=== PATIENT | male | born 1995 | race Caucasian/White ===

== ENCOUNTER 2020-01-28 17:30 | Inpatient (IN) | payer OTHER ==
[2020-01-28] MEDS ORDERED: Fentanyl 100 MCG/2 ML VIAL ONE (17:38)
--- NOTE | 2020-01-28 18:01 | RAD ---
Radiograph left humerus 2 views: HISTORY: 25-year-old male status post traumatic injury to arm FINDINGS: The distal humerus is excluded from the [id number] on one of the views, and is poorly positioned o n the other [id number]. There is no fracture of the humeral diaphysis and humeral head. IMPRESSION: No fracture of humeral head or shaft.
--- NOTE | 2020-01-28 18:04 | RAD ---
Radiograph left forearm 2 views: 01/28/2020 5:44 PM HISTORY: 25-year-old male with traumatic acute forearm pain due to fall from horse FINDINGS: Comminuted fracture of proximal metaphysis of ulna, with mild displacement, and medial angulation of fracture apex. There is also fracture of the humeral head, where the medial portion of the humeral head is significantly displaced distally. There is associated widening of the capitello- radial joint space. IMPRESSION: Acute, traumatic, displaced fractures of left radial head and left proximal ulna.
--- NOTE | 2020-01-28 18:05 | RAD ---
RADIOGRAPH CHEST 1 VIEW: DATE: 01/28/2020 HISTORY: 25-year-old male status post acute chest trauma due to fall from horse FINDINGS: There are no airspace densities, pulmonary edema, pneumothorax, or cardiomegaly. The lateral costophr enic angles are sharp. IMPRESSION: No acute cardiopulmonary findings.
[2020-01-28 18:07] LABS: #Eosinphils 0.1 thou/uL (0.0-0.7); #Lymphocytes 1.9 thou/uL (1.20-3.40); #Monocytes 0.8 thou/uL (0.11-0.59); #Neutrophils 12.8 thou/uL (1.40-6.50); %Basophils 0.2 % (0.0-1.0); %Eosinophils 0.4 % (0.0-10.0); %Lymphocytes 12.3 % (21.0-51.0); %Monocytes 4.8 % (0.0-10.0); %Neutrophils 82.3 % (42.0-75.0); Hemoglobin 14.7 g/dL (14.0-18.0); Mean Corpuscular HGB CONC 33.2 g/dL (32.0-36.0); Mean Corpuscular Hemoglobin 28.6 pg (27.0-31.0); Mean Corpuscular Volume 86.3 fL (78.0-98.0); Mean Platelet Volume 7.5 fL (7.4-10.4); Platelet Count 346 thou/uL (130-400); RBC Distribution Width 14.4 % (11.5-14.5); Red Blood Cell (RBC) Count 5.15 mill/uL (4.70-6.10); White Blood Cell (WBC) Count 15.5 thou/uL (4.8-10.8)
--- NOTE | 2020-01-28 18:10 | CT ---
CT BRAIN NONCONTRAST: DATE: 01/28/2020 HISTORY: 25-year-old male status post acute head trauma from fall from horse FINDINGS: There is no evidence of acute intra-axial or extra-axial hemorrhage. There is no midline shift or any other mass effect. There is no extra-axial fluid collection. The ventricles are normal in size and configuration. The tympanomastoid cavities, and the upper portions of the paranasal sinuses included in these images, are grossly clear. Calvarium is intact. IMPRESSION: Normal.
--- NOTE | 2020-01-28 18:13 | RAD ---
Radiograph left elbow 2 views: 01/28/2020 5:43 PM HISTORY: 25-year-old male with acute traumatic elbow pain due to fall from horse. FINDINGS: Comminuted fracture of proximal ulnar metaphysis, with slight dorsal angulation of fracture apex and mild displacement. Fracture involving anteromedial half of the radial head, with significant distal displacement. Wideni ng of capitellum radial joint space. IMPRESSION: 1.) Acute, traumatic, significantly displaced, intra-articular fracture of radial head. 2) comminuted, mildly displaced and mildly angled fracture proximal ulnar metaphysis.
--- NOTE | 2020-01-28 18:15 | CT ---
CT CERVICAL SPINE NONCONTRAST: DATE: 01/28/2020 HISTORY: cervical trauma: 25-year-old male status post fall FINDINGS: Alignment is normal. Vertebral body heights are maintained. No prevertebral soft tissue swelling. No perched or jumped facets. No significant degenerative disc disease or significant degenerative facet disease identified. No fracture or any other major osseous abnormality. IMPRESSION: Normal
--- NOTE | 2020-01-28 18:19 | CT ---
CT maxillofacial noncontrast: HISTORY: 25-year-old male status post fall from horse acute facial trauma Dr. Zamora verbally gave reports of the CTs of the face, brain, and C-spine, I telephone to Dr. lucho Ramirez ims of the ER at 6:16 PM 01/28/2020 FINDINGS: There is no fracture. Orbits, paranasal sinuses, and bilateral tympanomastoid cavities, are clear. No hematoma. No dislocation of TMJs. IMPRESSION: Negative
[2020-01-28 18:27] LABS: ALT (SGPT) 14 U/L (8-55); AST (SGOT) 14 U/L (5-34); Albumin 3.8 g/dL (3.5-5.0); Alkaline Phosphatase 70 U/L (40-110); Anion Gap 13 mmol/L (10-20); BUN (Urea Nitrogen) 9 mg/dL (8.9-20.6); Bilirubin, Total 0.9 mg/dL (0.2-1.2); Calc. Creatinine Clearance 0 mL/min (70-130); Calcium 7.8 mg/dL (7.8-10.44); Carbon Dioxide 22 mmol/L (22-29); Chloride 106 mmol/L (98-107); Estimated GFR-MDRD Greater than 90; Globulin 2.8 g/dL (2.4-3.5); Glucose 113 mg/dL (70-105); Protein, Total 6.6 g/dL (6.0-8.3); Sodium 138 mmol/L (136-145)
[2020-01-28 18:34] LABS: Potassium 2.8 mmol/L (3.5-5.1)
[2020-01-28] MEDS ORDERED: Ondansetron PF 4 MG/2 ML Vial ONE ×2 (18:39→21:56)
[2020-01-28] MEDS ORDERED: Morphine 4 MG/ML VIAL ONE ×3 (18:39→20:28)
[2020-01-28 19:35] LABS: Magnesium 1.2 mg/dL (1.6-2.6)
[2020-01-28 19:39] LABS: Phosphorus 1.1 mg/dL (2.3-4.7)
[2020-01-28 19:52] LABS: INR-International Normal Ratio 1.1
[2020-01-28 19:55] LABS: Lactic Acid 0.9 mmol/L (0.5-2.2)
[2020-01-28] MEDS ORDERED: Dextrose 5% in Water 1,000 ML IV PRN (21:12)
[2020-01-28] MEDS ORDERED: Dextrose 50% Abboject 50 ML SYRINGE SLOW IVP PRN (21:12)
[2020-01-28] MEDS ORDERED: traMADol HCl 50 MG TAB PO PRN (21:15)
[2020-01-28] MEDS ORDERED: Magnesium 2 GM/50 ML BAG (IN WATER) ONE (21:43)
[2020-01-28] MEDS ORDERED: Magnesium 2 GM/50 ML 2 GM in Premix Bag 1 BAG IVPB SCH (22:00)
[2020-01-28] MEDS ORDERED: Potassium Phosphate 30 MMOL in Sodium Chloride 0.9% 250 ML 250 ML IVPB SCH (22:00)
[2020-01-29] MEDS: Morphine 4 MG/ML VIAL SLOW IVP PRN ×3 (00:05→07:52)
[2020-01-29] MEDS: Ibuprofen 600 MG TAB PO SCH ×4 (00:05→19:35)
[2020-01-29] MEDS: Acetaminophen 500 MG TAB PO SCH ×4 (00:05→17:32)
[2020-01-29] MEDS: Cyclobenzaprine 10 MG TAB PO PRN ×2 (00:08→19:35)
[2020-01-29] MEDS: traMADol HCl 50 MG TAB PO PRN ×3 (00:08→17:32)
[2020-01-29] MEDS: Lactated Ringer's 1,000 ML IV SCH ×3 (00:10→14:09)
[2020-01-29 01:37] VITALS: BMI 25.7
--- NOTE | 2020-01-29 02:16 | HP ---
TRAUMA SURGEON: Dr. Jay. CONSULTING PHYSICIAN: Dr. Tariq. HISTORY OF PRESENT ILLNESS: The patient is a 25-year-old male presented to the emergency department via EMS as a level 2 trauma activation when he was ejected from the horse. The patient reports that when he got onto the horse, he started to izquierdo and he fell onto his left side. He reports striking his head, but no loss of consciousness. He does not use any anticoagulation. He has an obvious left distal radius and ulnar fracture, which has been splinted. His GCS is 15. He has been hemodynamically stable. The patient was ambulatory on the scene. REVIEW OF SYSTEMS: All additional 10-point review of systems negative except as indicated above. PAST MEDICAL HISTORY: The patient had a pituitary adenoma resection in May 2019. He has no residual deficits. PAST SURGICAL HISTORY: Pituitary adenoma resection in May and left ankle fracture ORIF. SOCIAL HISTORY: The patient works in the [employer] field. He chews tobacco. Denies any drug use. He drinks alcohol about 2-3 times a week. No history of any dependency. MEDICATIONS: The patient takes cabergoline 0.5 mg on Tuesdays and . ALLERGIES: SUDAFED. PHYSICAL EXAMINATION: VITAL SIGNS: Temperature 98.4, pulse 80, respirations 18, oxygen saturation 100% on room air, blood pressure 138/62. PRIMARY SURVEY: Airway intact. Adequate breath sounds bilaterally. 2+ pulses in bilateral radials, femorals, and DPs. GCS 15. Gross motor and sensation intact. No lacerations, bruising, or external bleeding. HEAD: Normocephalic. No gross palpable skull deformities or tenderness. EYES: Pupils 3 to 2, equal, round, reactive bilaterally. ENT AND NECK: No hemotympanum. No epistaxis. No septal hematoma. Midface stable to manipulation. No blood in the oropharynx. Dentition is intact. No anterior neck injury/crepitus/tenderness. The patient does have some very mild bruising near the left periorbital area of his face. C-spine, no step-offs or deformities. C-collar not in place. CHEST: Nontender. No crepitus. No abrasions or ecchymosis noted. Equal chest movement. ABDOMEN: Soft, nontender, nondistended. PELVIS: Stable to palpation, nontender. No abrasions or ecchymosis noted. RECTAL: Deferred. GENITOURINARY: Deferred. EXTREMITIES: Splint to left upper extremity is in place and fitting appropriately. There are no other deformities in his bilateral lower and right upper extremity. 2+ pulses in bilateral radials, femorals, and DPs. BACK/SPINE: No step-offs or deformities or tenderness to palpation of the thoracic or lumbar spine. No abrasions or ecchymosis noted. NEUROLOGIC: 5/5 strength in bilateral code official, plantar flexion dorsiflexion, gross normal sensation x4 extremities. LABORATORY FINDINGS: White count 15.5, hemoglobin 14.7, hematocrit 44.5, platelets 346. INR 1.1. Sodium 138, potassium 2.8, chloride 106, bicarb 22, BUN 9, creatinine 0.70, glucose 113, lactic acid 0.9, phosphorus 1.1, magnesium 1.2, total bilirubin 0.9, AST 14, ALT 14, alkaline phosphatase 70. DIAGNOSTIC FINDINGS: X-ray of the left elbow demonstrates acute traumatic significantly displaced intra-articular fracture of the radial head, comminuted, mildly displaced and mildly angulated fracture of the proximal ulnar metaphysis. CT scan of the brain demonstrates normal. CT scan of the C-spine demonstrates normal. Chest x-ray demonstrates no acute cardiopulmonary findings. CT scan of the facial bones demonstrates negative. X-ray of the left forearm demonstrates acute traumatic displaced fracture of the radial head and left proximal ulna. X-ray of the left humerus demonstrates no fracture of the humeral head or shaft. ASSESSMENT: 1. Status post ejection from horse. 2. Left distal radius and ulnar fracture. 3. Acute hypokalemia, hypophosphatemia, and hypomagnesemia. 4. History of pituitary adenoma. PLAN: The patient will be admitted to the Trauma Service. He has a regular diet. N.p.o. at midnight. LR at 120 an hour. He is to receive 30 millimoles of potassium phos and 2 g of Mag IV. He will receive both p.o. and IV pain medications p.r.n. The patient to go to the OR tomorrow with Dr. Tariq for fixation of his left radius and ulnar. He will likely be discharged home postoperatively. This patient was discussed with Dr. Jay before this dictation. Job ID: [id number]
[2020-01-29] MEDS: Ondansetron PF 4 MG/2 ML Vial IVP PRN ×2 (04:18→18:35)
[2020-01-29 05:08] LABS: #Eosinphils 0.1 thou/uL (0.0-0.7); #Lymphocytes 2.3 thou/uL (1.20-3.40); #Monocytes 0.9 thou/uL (0.11-0.59); #Neutrophils 9.3 thou/uL (1.40-6.50); %Basophils 0.1 % (0.0-1.0); %Eosinophils 0.5 % (0.0-10.0); %Lymphocytes 18.2 % (21.0-51.0); %Monocytes 7.3 % (0.0-10.0); Hemoglobin 13.8 g/dL (14.0-18.0); Mean Corpuscular HGB CONC 33.6 g/dL (32.0-36.0); Mean Corpuscular Volume 86.2 fL (78.0-98.0); Mean Platelet Volume 7.5 fL (7.4-10.4); Platelet Count 319 thou/uL (130-400); RBC Distribution Width 14.2 % (11.5-14.5); Red Blood Cell (RBC) Count 4.78 mill/uL (4.70-6.10); White Blood Cell (WBC) Count 12.5 thou/uL (4.8-10.8)
[2020-01-29 05:50] LABS: Anion Gap 12 mmol/L (10-20); BUN (Urea Nitrogen) 8 mg/dL (8.9-20.6); Calc. Creatinine Clearance 183 mL/min (70-130); Calcium 8.8 mg/dL (7.8-10.44); Carbon Dioxide 26 mmol/L (22-29); Chloride 101 mmol/L (98-107); Estimated GFR-MDRD Greater than 90; Glucose 123 mg/dL (70-105); Magnesium 2.3 mg/dL (1.6-2.6); Phosphorus 5.8 mg/dL (2.3-4.7); Potassium 4.2 mmol/L (3.5-5.1); Sodium 135 mmol/L (136-145)
[2020-01-29] MEDS ORDERED: CEFAZOLIN 2 GM in Premix Bag 1 BAG IVPB SCH ×2 (07:45→19:00)
[2020-01-29] MEDS: Famotidine/PF 20 mg/2ml Vial SLOW IVP SCH ×2 (07:51→20:20)
[2020-01-29] MEDS: Senokot S 8.6-50 MG TAB PO SCH ×2 (07:52→20:18)
[2020-01-29] MEDS: Polyethylene Glycol 3350 17 GM Packet PO SCH (07:52)
--- NOTE | 2020-01-29 08:11 | CON ---
DATE OF CONSULTATION: 01/29/2020 REQUESTING PHYSICIAN: Sai Jay MD BRIEF HISTORY OF PRESENT ILLNESS: The patient is a pleasant 25-year-old gentleman status post fall from a horse, landed on outstretched left arm. The patient reports immediate left elbow pain as well as numbness and tingling of the small and ring finger. Upon arrival at [place], he was found to have some numbness and tingling in the ulnar distribution. Otherwise, awake and alert. The patient was placed in a splint and admitted to the Trauma Service with Orthopedic consultation requested. PAST MEDICAL HISTORY: Remarkable for a pituitary adenoma. PAST SURGICAL HISTORY: 1. Resection of pituitary adenoma in May of 2019. 2. Left ankle open reduction and internal fixation. MEDICATIONS: Cabergoline for his pituitary adenoma. ALLERGIES: TO SUDAFED. SOCIAL HISTORY: The patient is employed in the [employer] industry. He does chew tobacco. He denies drug use. He consumes alcohol 2 to 3 times per week. FAMILY HISTORY: Noncontributory. REVIEW OF SYSTEMS: Denies recent fevers, chills or sweats. Denies chest pain, cough or shortness breath. He reports some mild tingling in the ulnar distribution, although states that this is improving from his initial injury state. Upon admission, the patient did have a 10-point review of systems in the emergency room, which were negative except as stated in my report with numbness in the ulnar distribution. PHYSICAL EXAMINATION: VITAL SIGNS: Temperature of 98.4, heart rate of 80, respiratory rate of 18, and blood pressure of 138/62. HEENT: Atraumatic and normocephalic. HEART: Regular rate and rhythm without murmur. CHEST: Clear to auscultation with good breath sounds and chest wall is nontender. ABDOMEN: Flat with normal bowel sounds. PELVIS: Stable. EXTREMITIES: Remarkable for the left upper extremity which is in a long-arm posterior fiberglass splint. He is able to gently extend and flex his digits and thumb. He has normal sensation in the radial and median distribution. He has just a slight tingling sensation in the ulnar distribution, but does have intact sensation, which is protective. He is tender to palpation at the proximal radius and ulna. There is swelling, although it is not tense, and there was no break in skin. X-RAYS: X-rays including left forearm, left humerus, as well as a postreduction left elbow x-ray remarkable for a proximal ulna fracture that is distal to the olecranon itself with mild angulation. He is found to have a comminuted radial head fracture extending into the neck as well. This is also currently not articulating with the capitellum. LABORATORY DATA: He was found to have a white count of 12.5, hematocrit of 41.2, and 319,000 platelets. ASSESSMENT: The patient with closed left proximal ulna and radial head fracture. PLAN: At this time, the patient is admitted to the Trauma Service. We will plan on taking him to the operating room for open reduction and internal fixation of both proximal ulna and proximal radius. Today while his parents were in the hospital room, we discussed risks and benefits. Risks include, but are not limited to bleeding, infection, nerve injury, malunion, nonunion, elbow stiffness. The patient appears to understand and does wish to proceed. Informed consent will be obtained prior to surgery. Job ID: [id number]
[2020-01-29] MEDS ORDERED: Ondansetron PF 4 MG/2 ML Vial ONE (09:03)
[2020-01-29] MEDS ORDERED: PROPOFOL 200 MG/20 ML VIAL ONE (09:03)
[2020-01-29] MEDS ORDERED: Ketorolac Tromethamine 30 MG/ML VIAL ONE (09:03)
[2020-01-29] MEDS ORDERED: Rocuronium Bromide 10 MG/ML (10ML VIAL) ONE (09:03)
[2020-01-29] MEDS ORDERED: Lidocaine 1% PF 5 ML VIAL ONE (09:03)
[2020-01-29] MEDS ORDERED: Succinylcholine Chloride 20 MG/ML 10 ml SYRINGE FS ONE (09:03)
--- NOTE | 2020-01-29 09:14 | PRG ---
DATE OF SERVICE: 01/29/2020 Mr. Emerson is seen and examined. Please see Carmella Arroyo's H and P for full details. Plan is ORIF of left ulnar radius fracture today by Dr. Tariq. Trauma will continue to follow. Job ID: [id number]
[2020-01-29] MEDS ORDERED: Midazolam HCl 2 mg/2 ml Vial ONE (12:07)
[2020-01-29] MEDS ORDERED: Fentanyl 100 MCG/2 ML VIAL ONE ×2 (12:16→15:18)
[2020-01-29] MEDS ORDERED: Promethazine HCl 25 MG/ML VIAL SLOW IVP PRN (15:00)
[2020-01-29] MEDS ORDERED: Ondansetron HCl/PF 4 MG/2 ML Vial IVP PRN (15:00)
[2020-01-29] MEDS ORDERED: Promethazine HCl 25 MG/ML VIAL IM PRN (15:00)
--- NOTE | 2020-01-29 15:37 | RAD ---
LEFT ELBOW TWO VIEWS: 01/29/20 INDICATION: History of postoperative left elbow. FINDINGS: Since the comparison examination there has been an interval ORIF of the proximal humeral and radial h ead/neck fracture. Fracture alignment is near anatomic. There is posterior splint in place. Radiocapi tellar alignment is within normal limits. IMPRESSION: Postoperative left elbow. POS: BH
[2020-01-29] MEDS ORDERED: Labetalol HCl 100 MG/20 ML VIAL ONE (15:48)
[2020-01-29] MEDS ORDERED: Nicotine 14 MG PATCH TD SCH (16:00)
--- NOTE | 2020-01-29 18:40 | RAD ---
LEFT ELBOW THREE VIEWS: 01/29/20 INDICATION: ORIF of left elbow. COMPARISON: Prior exam dated 01/28/20. FINDINGS: Since the comparison examination, there has been interval reduction and internal fixation of the radi al head and neck fracture as well as the proximal ulnar fracture. Fluoroscopic time is no recorded. IMPRESSION: ORIF of left proximal forearm fractures. POS: BH
[2020-01-29] MEDS ORDERED: Gabapentin 300 MG CAP PO SCH (19:30)
[2020-01-29] MEDS ORDERED: traMADol HCl 50 MG TAB PO SCH (20:00)
[2020-01-29] MEDS: CEFAZOLIN 2 GM in Premix Bag 1 BAG IVPB SCH (20:16)
[2020-01-29] MEDS ORDERED: Acetaminophen/Codeine 30-300mg Tablet PO PRN (20:34)
[2020-01-29] MEDS ORDERED: Ketorolac Tromethamine 30 MG/ML VIAL IVP SCH (21:00)
[2020-01-29] MEDS ORDERED: Fentanyl 100 MCG/2 ML VIAL SLOW IVP SCH (21:00)
[2020-01-29] MEDS ORDERED: Acetaminophen 325 MG TAB PO SCH (22:00)
[2020-01-29] MEDS: Acetaminophen/Codeine 30-300mg Tablet PO PRN (23:21)
--- NOTE | 2020-01-30 00:16 | PRG ---
DATE OF SERVICE: 01/29/2020 SUBJECTIVE: Patient was seen this evening. Nursing reported patient having significant pain at his left elbow near the location of the screw fixation by Ortho today. Previously, he had good pain control postoperatively, but I think that was because anesthesia had not worn off yet. Upon my evaluation, there was no concern for compartment syndrome. Compartments were soft. The patient had a good strong pulse. His hand was warm and he had good neurological function. He received Toradol and fentanyl, and his pain regimen was upgraded. Tramadol was discontinued and he was placed on Tylenol 3. The patient had a pituitary adenoma resection in May and reported Tylenol 3 worked well for pain control for him. OBJECTIVE: VITAL SIGNS: Temperature 98.4, pulse 84, respirations 20, oxygen saturation 98% on room air, blood pressure 156/94. GENERAL: Well-appearing young male, sitting up in bed with some moderate distress. PULMONARY: Equal chest rise and fall. No signs of acute respiratory distress. EXTREMITIES: 2+ pulses in all extremities. Gross motor and sensation intact in all extremities. The patient with compartments soft in the left humerus and forearm. No concern for compartment syndrome at this time. NEUROLOGIC: GCS is 15. ASSESSMENT: 1. Status post ejection from horse. 2. Left proximal radius and ulnar fracture, status post repair. 3. History of pituitary adenoma. PLAN: Discontinue tramadol. Place the patient on Tylenol 3 p.r.n. Discontinue ibuprofen. Start the patient on Toradol q.6 hours schedule. Also started the patient on gabapentin this evening. He did receive one dose of fentanyl and Toradol during my evaluation. Upon re-evaluation later in the evening, patient's pain was well controlled, resting comfortably. Patient's father at bedside. The patient will be discharged when his pain is well controlled. Job ID: [id number]
[2020-01-30] MEDS: Ketorolac Tromethamine 30 MG/ML VIAL IVP SCH ×2 (02:26→08:18)
[2020-01-30] MEDS: CEFAZOLIN 2 GM in Premix Bag 1 BAG IVPB SCH (04:50)
[2020-01-30 05:33] LABS: #Eosinphils 0.2 thou/uL (0.0-0.7); #Monocytes 1.1 thou/uL (0.11-0.59); #Neutrophils 8.1 thou/uL (1.40-6.50); %Basophils 0.3 % (0.0-1.0); %Eosinophils 1.6 % (0.0-10.0); %Lymphocytes 17.7 % (21.0-51.0); %Monocytes 9.3 % (0.0-10.0); %Neutrophils 71.1 % (42.0-75.0); Hemoglobin 12.4 g/dL (14.0-18.0); Mean Corpuscular HGB CONC 31.7 g/dL (32.0-36.0); Mean Corpuscular Hemoglobin 28.2 pg (27.0-31.0); Mean Corpuscular Volume 89.1 fL (78.0-98.0); Mean Platelet Volume 7.5 fL (7.4-10.4); Platelet Count 254 thou/uL (130-400); RBC Distribution Width 14.4 % (11.5-14.5); Red Blood Cell (RBC) Count 4.38 mill/uL (4.70-6.10); White Blood Cell (WBC) Count 11.3 thou/uL (4.8-10.8)
[2020-01-30 05:59] LABS: Anion Gap 11 mmol/L (10-20); BUN (Urea Nitrogen) 5 mg/dL (8.9-20.6); Calc. Creatinine Clearance 185 mL/min (70-130); Calcium 8.2 mg/dL (7.8-10.44); Carbon Dioxide 23 mmol/L (22-29); Chloride 104 mmol/L (98-107); Estimated GFR-MDRD Greater than 90; Glucose 110 mg/dL (70-105); Magnesium 1.7 mg/dL (1.6-2.6); Phosphorus 3.3 mg/dL (2.3-4.7); Potassium 3.8 mmol/L (3.5-5.1); Sodium 134 mmol/L (136-145)
[2020-01-30] MEDS ORDERED: Gabapentin 300 MG CAP PO SCH (06:00)
[2020-01-30] MEDS ORDERED: Acetaminophen 325 MG TAB PO SCH (06:00)
[2020-01-30 07:52] VITALS: BP 137/75; TEMP 98.4
[2020-01-30] MEDS: Famotidine/PF 20 mg/2ml Vial SLOW IVP SCH (08:18)
[2020-01-30] MEDS: Polyethylene Glycol 3350 17 GM Packet PO SCH (08:19)
[2020-01-30] MEDS: Senokot S 8.6-50 MG TAB PO SCH (08:19)
[2020-01-30] MEDS: Acetaminophen/Codeine 30-300mg Tablet PO PRN (08:26)
[2020-01-30] MEDS ORDERED: Potassium Phosphate 15 MMOL, Magnesium Sulfate 2 GM in Sodium Chloride 0.9% 250 ML 250 ML IVPB SCH (09:00)
[2020-01-30] MEDS ORDERED: Magnesium Sulfate 2 GM in Sodium Chloride 0.9% 100 ML IVPB SCH (09:00)
[2020-01-30] MEDS: Cyclobenzaprine 10 MG TAB PO PRN (10:37)
[2020-01-30] MEDS ORDERED: Ondansetron ODT 4 MG TAB PO PRN (10:40)
--- NOTE | 2020-01-30 17:02 | DIS ---
DATE OF ADMISSION: 01/28/2020 DATE OF DISCHARGE: 01/30/2020 This is Julia Malagon NP dictating a report for Sai Jay MD. CONSULT: Orthopedic Surgery, Dr. Tariq. PROCEDURES: On 01/29/2020, open reduction and internal fixation of left ulnar radius fracture. PRIMARY DIAGNOSES: 1. Ejected from horse. 2. Left radius ulnar fracture, status post repair. SECONDARY DIAGNOSIS: Pituitary adenoma. DISCHARGE MEDICATIONS: 1. Tylenol No. 3 one tablet p.o. q.6 hours p.r.n. pain #20. 2. Flexeril 10 mg p.o. 3 times a day p.r.n. muscle spasms #10. 3. Gabapentin 300 mg p.o. q.8 hours #30. 4. Tramadol 50 mg q.6 hours p.r.n. #30, do not take in combination with Tylenol No. 5. Zofran ODT 4 mg q.6 hours #10 p.r.n. nausea, vomiting. 6. Acetaminophen 325 mg p.o. q.6 hours. 7. Continue cabergoline. 8. Ibuprofen 600 mg p.o. q.8 hours p.r.n. pain. 9. MiraLAX as needed. 10. Senokot as needed. No discontinued medications. HISTORY OF PRESENT ILLNESS AND HOSPITAL COURSE: This is a 25-year-old male, who presented to the emergency room as a level 2 trauma activation after being ejected from the horse. The patient reports that he was bucked off and landed on his left side. He reports striking his head, but no loss of consciousness. He denies being on any anticoagulation. He had obvious distal radius ulnar fracture, in which was splinted in the emergency room. The patient had a GCS of 15 and was hemodynamically stable. The patient's pain was uncontrolled postop. Medications had to be adjusted, in which finally his pain was controlled. The patient was able to ambulate without any difficulties with physical therapy. On the day of discharge, the patient's exam was unremarkable including cardiopulmonary and GI exam. The patient's vital signs were stable and he was deemed stable for discharge home. The patient was examined by Dr. Jay. DISPOSITION: Stable. DISCHARGE INSTRUCTIONS: 1. Location: Home. 2. Diet: Regular diet as tolerated. 3. Activity: Nonweightbearing to left arm. The patient is to wear sling at all times. 4. Followup: Follow up with Orthopedic Surgery in 14 days. No need to follow up with Trauma Services. Job ID: [id number] [facility]
--- NOTE | 2020-01-30 18:10 | OP ---
DATE OF PROCEDURE: 01/29/2020 PREOPERATIVE DIAGNOSES: 1. Left proximal ulnar shaft fracture. 2. Comminuted left radial head fracture. POSTOPERATIVE DIAGNOSES: 1. Left proximal ulnar shaft fracture. 2. Comminuted left radial head fracture. PROCEDURES PERFORMED: 1. Open reduction and internal fixation of left proximal ulnar shaft. 2. Open reduction and internal fixation of left radial head fracture. ANESTHESIA: General. CUSTOMER ACCOUNT EXECUTIVE: Mercedes Pderaza PA-C TOURNIQUET TIME: 98 minutes at 250 mmHg. IMPLANT: Synthes 2.4 mm LCP neck plate; Synthes 2.5 mm LCP metaphyseal plate, 6-hole for the proximal ulna; and a Synthes 2.4 mm headless screw. COMPLICATIONS: None. DRAINS: None. SPECIMENS: None. OUTCOME: Satisfactory. INDICATION FOR PROCEDURE: The patient is a 25-year-old gentleman, status post fall from horse sustaining a severely comminuted left radial head as well as a left proximal ulnar shaft fracture. In addition to the fracture of the radial head, the segment of head that is still attached to the shaft is dislocated. After discussion with the patient including risks and benefits, we have decided to proceed with open reduction and internal fixation. Informed consent has been obtained. I believe, all questions answered. DESCRIPTION OF PROCEDURE: The patient was brought to the operating room and a time-out performed followed by induction of general anesthesia. Next, the patient was positioned in a right lateral decubitus position with the left arm held over a bolster. Next, a sterile prep and drape was performed of this left upper extremity. Next, bony landmarks were marked out including the olecranon, the subcutaneous border of the ulna as well as the radial head. A skin incision was made equidistant between the ulnar shaft fracture and the radial head fracture extending longitudinally down the forearm. After skin was sharply incised, dissection was carried down bluntly identifying the extensor carpi muscle belly. Next, using a scalpel, the periosteum at the subcutaneous border of the ulna was incised and then the dissection was carried to the ulnar border of the proximal ulna trying to keep the musculature between the ulna and radial head disruption to a minimal in hopes of discouraging any type of synostosis. Once the ulnar border of the proximal ulna was freed of the flexor carpi ulnaris muscle belly, an open reduction was performed and held in place with a bone tenaculum and then a plate applied to this ulnar cortex. This was a 6-hole metaphyseal plate. Once positioned, 3 cortical screws were placed proximal and 3 distal to the fracture using standard compression technique. This provided good stability of the ulna in near anatomic alignment. Next, utilizing the same skin incision, the interval between the anconeus and the extensor muscle was exploited. Once this interval was opened, the dissection was carried down to the capsule that did have a tear within it. The more proximal capsule was then opened sharply. The annular ligament was then also released to allow for full exposure of the radial neck with a little under half of the head still attached to the neck, the other half of the head split 2 primary pieces and completely displaced. These 2 pieces were delivered from the wound and reapproximated to one another and then a 2.4 mm headless screw was passed. This was done while my congressional assistant provided stabilization of the 2 fragments with myself, applying the pin across the fragments and then the compression screw, essentially taking these 2 pieces and making it into 1 large fragment. Once performed while my congressional assistant was providing both supination and pronation of the forearm, this piece of radial head was inserted back into the elbow. Given its size and proximity, it was difficult to fix to the neck with just screws, and as such, it was opted to proceed with an LCP neck plate. While the arm was held in full supination, the head was reduced and then held provisionally with a K-wire. Next, a 2.4 mm LCP neck plate was applied to the neck of the proximal radius. This was held in place with a cortical screw in the longitudinal limb of the plate. Next, 2 locking screws were passed from the plate obliquely across the fracture capturing the free radial head fragment that had been previously reconstructed with a headless screw. Once done, there was found to be yarsanism of an almost normal-appearing radial head and neck. This was able to be reduced in 1 piece back in apposition to the capitellum, and then AP and lateral C-arm images were obtained that showed anatomic alignment of this fracture and its relationship with the capitellum. The wound was then thoroughly irrigated with normal saline. While my congressional assistant provided flexion and stability at the elbow, the wound was closed in layers. The annular ligament and capsule were reapproximated with 0 Vicryl, followed by 0 Vicryl to reapproximate the interval between the extensor muscle and the anconeus. 0 Vicryl was also used to reapproximate the extensor and flexor carpi ulnaris fascia overlying the ulnar plate. This was then followed by 2-0 Vicryl for the skin and then kiko for final closure. Next, a Xeroform gauze and bulky long-arm splint were applied to the arm with the forearm in neutral rotation. Tourniquet was let down at the completion of this with a total time of 98 minutes. There were no complications, and the patient tolerated the procedure well. Job ID: [id number]
== END 2020-01-30 11:45 | disposition home or self-care (01) | DRG 512 ==
LOC: ERS 17:30 → SURG A 20:22
PROVIDERS: ADMIT Surgery; ATTEND Surgery
PROC: 0PSL04Z Reposition Left Ulna with Internal Fixation Device, Open Approach (ICD-10-PCS; principal; 2020-01-29)
PROC: 0PSJ04Z Reposition Left Radius with Internal Fixation Device, Open Approach (ICD-10-PCS; 2020-01-29)
DX: S52.122A Displaced fracture of head of left radius, initial encounter for closed fracture (principal); S52.292A Other fracture of shaft of left ulna, initial encounter for closed fracture; W01.0XXA Fall on same level from slipping, tripping and stumbling without subsequent striking against object, initial encounter; F17.220 Nicotine dependence, chewing tobacco, uncomplicated; E87.6 Hypokalemia; E83.42 Hypomagnesemia; E83.39 Other disorders of phosphorus metabolism; Z88.8 Allergy status to other drugs, medicaments and biological substances; Z79.899 Other long term (current) drug therapy
CPT/HCPCS: 29105; 36415; 70450; 70486; 71045; 72125; 76000; 80048; 80053; 83605; 83735; 84100; 85025; 85610; 85730; 86850; 86900; 86901; 96361; 96365; 96375; 96376; C1713; C1776; J0690; J1885; J2250; J2270; J2405; J2704; J3010; J3475; J7050; S0028

== ENCOUNTER 2021-01-20 18:56 | Emergency (ER) | payer OTHER ==
[2021-01-20] MEDS ORDERED: oxyCODONE/Acetaminophen 5 mg/325 mg Tablet PO SCH (21:15)
== END 2021-01-20 21:24 | disposition left against medical advice (07) ==
LOC: ERS 18:56
DX: S52.571A Other intraarticular fracture of lower end of right radius, initial encounter for closed fracture (principal); S52.611A Displaced fracture of right ulna styloid process, initial encounter for closed fracture; V86.96XA Unspecified occupant of dirt bike or motor/cross bike injured in nontraffic accident, initial encounter; Z79.899 Other long term (current) drug therapy; Z79.891 Long term (current) use of opiate analgesic; F17.220 Nicotine dependence, chewing tobacco, uncomplicated